=== PATIENT | female | born 1995 | race Caucasian/White ===

== ENCOUNTER 2017-01-26 05:01 | Emergency (ER) | payer OTHER ==
[2017-01-26 05:14] VITALS: TEMP 98.2; BMI 31.4
[2017-01-26] MEDS ORDERED: SODIUM CHLORIDE 1,000 ML IV STA (05:19)
--- NOTE | 2017-01-26 05:27 | PDOC ---
History of Present Illness - General Chief Complaint: Pain, Acute Stated Complaint: ABD PAIN, ARM/BACK PAIN Time Seen by Provider: 01/26/17 05:13 History Source: Patient Exam Limitations: No Limitations - History of Present Illness Initial Comments: 01/26/17 05:20 This pt is a 21 yo F with a history of Asthma presenting to the ER with a complaint of abdominal pain. She states her symptoms began one hour prior to arrival Pain described as sharp, located in the periumbilical and epigastric areas. Pain began while she was sleeping. Pain is intermittent, no exacerbating or alleviating factors Pt feels nauseous, has not vomited. No prior episodes like this She did have some abdominal pain last week while in the [place] and then subsequently had diarrhea This time, no diarrhea No abdominal surgeries in the past She denies dysuria, flank pain LMP 1 month ago ROS: GENERAL/CONSTITUTIONAL: No: fever, chills, weakness, loss of appetite. HEAD, EYES, EARS, NOSE AND THROAT: No: change in vision, ear pain, discharge, sore throat, throat swelling. CARDIOVASCULAR: No: chest pain, lightheadedness, palpitations, syncope RESPIRATORY: No: cough, shortness of breath, wheezing, hemoptysis, stridor. GASTROINTESTINAL: (+) abdominal pain, nausea No: vomiting, diarrhea GENITOURINARY: No: dysuria, hematuria, frequency, urgency, flank pain. MUSCULOSKELETAL: No: back pain, neck pain, joint pain, muscle swelling or pain SKIN: No: lesions, pallor, rash or easy bruising. NEUROLOGIC: No: headache, vertigo, paresthesias, weakness ENDOCRINE: No: unexplained weight gain or loss HEMATOLOGIC/LYMPHATIC: No: anemia, easy bleeding, swelling nodes. PHYSICAL EXAM GENERAL: The patient is in no acute distress, intermittently pt pulls he legs up in the position, due to pain and cries HEAD: Normal with no signs of trauma. EYES: PERRLA, EOMI, sclera anicteric, conjunctiva clear. ENT: Ears normal, nares patent, oropharynx clear without exudates. Moist mucous membranes. NECK: Normal range of motion, supple without lymphadenopathy, JVD, or masses. LUNGS: Breath sounds equal, clear to auscultation bilaterally. No wheezes, and no crackles. HEART:Regular rate and rhythm, normal S1 and S2 without murmur, rub or gallop. ABDOMEN: (+) tender to palpation epigastrium, RUQ ttp, (+ ) Kamara's sign , Soft , normoactive bowel sounds. No involuntary guarding, no rebound. EXTREMITIES: Normal range of motion, no edema. No clubbing or cyanosis. No erythema, or tenderness. NEUROLOGICAL: Cranial nerves II through XII grossly intact. Normal speech. No focal neurological deficits. MUSCULOSKELETAL: Back non-tender to palpation, no CVA tenderness SKIN: Warm, Dry, normal turgor, no rashes or lesions noted. Past History - Past Medical History Allergies/Adverse Reactions: Allergies Allergy/AdvReac Type Severity Reaction Status Date / Time No Known Allergies Allergy Verified 01/26/17 05:13 Home Medications: Ambulatory Orders NK [No Known Home Medication] 10/10/14 - Psycho/Social/Smoking Cessation Hx Anxiety: No Suicidal Ideation: No Smoking History: Never smoked Hx Alcohol Use: No Substance Use Type: None *Physical Exam - Vital Signs Last Vital Signs Temp Pulse Resp BP Pulse Ox 98.2 F 85 20 140/87 100 01/26/17 05:13 01/26/17 05:13 01/26/17 05:13 01/26/17 05:13 01/26/17 05:13 ED Treatment Course - LABORATORY CBC & Chemistry Diagram: 01/26/17 05:35 01/26/17 05:35 Medical Decision Making - Medical Decision Making 01/26/17 05:24 DD: cholecystitis, gastric ulcer, early appendicitis, colitis Will do labs Will do abd CT Will give IVF Will give Zofran Will give pain medications Will re assess 01/26/17 06:26 Pelvic examination: Scant discharge No CMT Pt states her mother had something similar last year and was told that she had an amoeba Pt believes this is the same 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 now Bedside US appears to demonstrate an enlarged gallbladder I have had a long conversation with this patient about additional imaging She would like to avoid radiation if possible Will start with an official US 01/26/17 06:31 Laboratory Tests 01/26/17 01/26/17 05:35 05:35 WBC 9.2 Hgb 12.1 Hct 37.2 Plt Count 259 Neutrophils % 56.4 Lymphocytes % 34.5 BUN 8 Creatinine 0.7 Pt signed out to Dr Young pending US *DC/Admit/Observation/Transfer Diagnosis at time of Disposition: Diarrhea - Discharge Dispostion Disposition: HOME Condition at time of disposition: Fair - Referrals Referrals: Jefry Pena MD [Primary Care Provider] - - Patient Instructions Printed Discharge Instructions: DI for Abdominal Pain-Adult Additional Instructions: make sure that you follow up with your doctor-- you may need additional testing done if diarrhea continues. Return for pain with fever, worsening pain, severe nausea and vomiting.
[2017-01-26] MEDS ORDERED: ONDANSETRON 4 MG/2 ML VIAL IVPUSH ONE (05:33)
[2017-01-26] MEDS ORDERED: morphine CARPU-JECT 4 MG/1 ML DISP.SYRIN IVPUSH ONE (05:33)
[2017-01-26] MEDS ORDERED: ONDANSETRON 4 MG/2 ML VIAL ONE (05:35)
[2017-01-26] MEDS ORDERED: morphine CARPU-JECT 4 MG/1 ML DISP.SYRIN ONE (05:36)
[2017-01-26 06:01] LABS: BASOPHIL 0.5 % (0-2.0); EOSINOPHIL 0.8 % (0-4.5); MCH 27.9 pg (25.7-33.7); MCHC 32.5 g/dl (32.0-36.0); MEAN CELL VOLUME 85.9 fl (80-96); MEAN PLT VOLUME 9.4 fl (7.5-11.1); NEUTROPHILS 56.4 % (42.8-82.8); PLATELET COUNT 259 K/MM3 (134-434); RDW 12.6 % (11.6-15.6); WHITE BLOOD COUNT 9.2 K/mm3 (4.0-10.0)
[2017-01-26 06:26] LABS: ALBUMIN 3.3 g/dl (3.4-5.0); ALK PHOS 79 U/L (45-117); AMYLASE 39 U/L (25-115); ANION GAP 7 (8-16); BILIRUBIN,TOTAL 0.4 mg/dL (0.2-1.0); CO2 27 mmol/L (21-32); CREATININE 0.7 mg/dL (0.55-1.02); GLUCOSE,RANDOM 94 mg/dL (74-106); SGOT/AST 40 U/L (15-37); SGPT/ALT 27 U/L (12-78); TOT PROT 7.4 g/dl (6.4-8.2)
[2017-01-26 10:58] LABS: URINE APPEARANCE CLEAR; URINE BILIRUBIN NEGATIVE (NEGATIVE); URINE BLOOD NEGATIVE (NEGATIVE); URINE COLOR LTYELLOW; URINE GLUCOSE (UA) NEGATIVE (NEGATIVE); URINE KETONE NEGATIVE (NEGATIVE); URINE NITRITE NEGATIVE (NEGATIVE); URINE PROTEIN NEGATIVE (NEGATIVE); URINE UROBILINOGEN NEGATIVE E.U./dl (0.2-1.0)
[2017-01-26 11:14] LABS: URINE LEUK ESTERASE 1+ (NEGATIVE)
[2017-01-26 11:23] LABS: URINE MUCUS RARE; URINE RBC 1 /hpf (0-3); URINE WBC 5 /hpf (3-5)
--- NOTE | 2017-01-26 12:01 | PDOC ---
History of Present Illness - General Chief Complaint: Pain, Acute Stated Complaint: ABD PAIN, ARM/BACK PAIN Time Seen by Provider: 01/26/17 05:13 Past History - Past Medical History Allergies/Adverse Reactions: Allergies Allergy/AdvReac Type Severity Reaction Status Date / Time No Known Allergies Allergy Verified 01/26/17 05:13 Home Medications: Ambulatory Orders NK [No Known Home Medication] 10/10/14 - Psycho/Social/Smoking Cessation Hx Anxiety: No Suicidal Ideation: No Smoking History: Never smoked Hx Alcohol Use: No Substance Use Type: None *Physical Exam - Vital Signs Last Vital Signs Temp Pulse Resp BP Pulse Ox 98.2 F 85 20 140/87 100 01/26/17 05:13 01/26/17 05:13 01/26/17 05:13 01/26/17 05:13 01/26/17 05:13 ED Treatment Course - LABORATORY CBC & Chemistry Diagram: 01/26/17 05:35 01/26/17 05:35 - ADDITIONAL ORDERS Additional order review: Laboratory Results 01/26/17 01/26/17 05:35 05:35 Sodium 139 Potassium 4.7 Chloride 105 Carbon Dioxide 27 Anion Gap 7 L BUN 8 Creatinine 0.7 Creat Clearance w eGFR > 60 Random Glucose 94 Calcium 9.0 Total Bilirubin 0.4 AST 40 H ALT 27 Alkaline Phosphatase 79 Total Protein 7.4 Albumin 3.3 L Total Amylase 39 Lipase 74 Serum , Qual Negative Urine Color Ltyellow Urine Appearance Clear Urine pH 6.0 Urine Protein Negative Urine Glucose (UA) Negative Urine Ketones Negative Urine Blood Negative Urine Nitrite Negative Urine Bilirubin Negative Urine Urobilinogen Negative Ur Leukocyte Esterase 1+ H Urine RBC 1 Urine WBC 5 Ur Epithelial Cells Rare Urine Mucus Rare 01/26/17 05:35 RBC 4.33 MCV 85.9 MCHC 32.5 RDW 12.6 MPV 9.4 Neutrophils % 56.4 Lymphocytes % 34.5 Monocytes % 7.8 Eosinophils % 0.8 Basophils % 0.5 - Medications Given in the ED: ED Medications Discontinued Medications Generic Name Dose Route Start Last Admin Trade Name Freq PRN Reason Stop Dose Admin Sodium Chloride 1,000 mls @ 1,000 mls/hr 01/26/17 05:19 01/26/17 05:31 Normal Saline - IV 01/26/17 06:18 1,000 mls/hr ASDIR STA Administration Morphine Sulfate 4 mg 01/26/17 05:33 01/26/17 05:45 Morphine Injection - IVPUSH 01/26/17 05:34 4 mg ONCE ONE Administration Ondansetron HCl 4 mg 01/26/17 05:33 01/26/17 05:34 Zofran Injection IVPUSH 01/26/17 05:34 4 mg ONCE ONE Administration Medical Decision Making - Medical Decision Making 01/26/17 12:[address] negative except for possible hemangioma. Abdomen is non tender non my exam. Nausea and diarrhea are gone. Patient will be discharged with instructions to follow up with her PMD this week for stool O and P. *DC/Admit/Observation/Transfer Diagnosis at time of Disposition: Diarrhea - Discharge Dispostion Disposition: HOME Condition at time of disposition: Good Admit: No - Referrals Referrals: Jefry Pena MD [Primary Care Provider] - - Patient Instructions Printed Discharge Instructions: DI for Abdominal Pain-Adult Additional Instructions: make sure that you follow up with your doctor-- you may need additional testing done if diarrhea continues. Return for pain with fever, worsening pain, severe nausea and vomiting.
[2017-01-26 12:12] VITALS: BP 127/90; PULSE 82
== END 2017-01-26 12:12 | disposition home or self-care (01) ==
LOC: JER 05:01
PROC: 3E0337Z Introduction of Electrolytic and Water Balance Substance into Peripheral Vein, Percutaneous Approach (ICD-10-PCS; principal; 2017-01-26)
PROC: 3E033NZ Introduction of Analgesics, Hypnotics, Sedatives into Peripheral Vein, Percutaneous Approach (ICD-10-PCS; 2017-01-26)
PROC: 3E033GC Introduction of Other Therapeutic Substance into Peripheral Vein, Percutaneous Approach (ICD-10-PCS; 2017-01-26)
DX: R10.13 Epigastric pain (principal)
CPT/HCPCS: 36415; 76705-TC; 80053; 81003; 81015; 82150; 83690; 84703; 85025; 87086; 96361; 96374; 96375; 99283-25

== ENCOUNTER 2018-05-29 09:28 | Emergency (ER) | payer OTHER ==
[2018-05-29 09:35] VITALS: BP 125/79; PULSE 80; TEMP 99.1; BMI 31.6
[2018-05-29] MEDS ORDERED: predniSONE 20 MG TABLET (UD) PO ONE (10:33)
[2018-05-29] MEDS ORDERED: predniSONE 20 MG TABLET (UD) ONE (10:37)
--- NOTE | 2018-05-29 10:43 | PDOC ---
History of Present Illness - General Chief Complaint: Allergic Reaction Stated Complaint: Allergic Reaction Time Seen by Provider: 05/29/18 10:29 History Source: Patient Exam Limitations: No Limitations - History of Present Illness Initial Comments: 05/29/18 10:45 23 y/o female presents to the ED with a facial itchy red rash since worsening in severity this morning. Patient states has had 3 episodes over the past 2 years with similar presentation and responded well to Benadryl and steroids. 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 Patient also denies recent travel, recent fever, difficulty swallowing, or difficulty breathing. Severity: mild Associated Symptoms: reports: rash Past History - Travel Traveled outside of the country in the last 30 days: No - Past Medical History Allergies/Adverse Reactions: Allergies Allergy/AdvReac Type Severity Reaction Status Date / Time No Known Allergies Allergy Verified 05/29/18 09:31 Home Medications: Ambulatory Orders Diphenhydramine [Benadryl -] 50 mg PO TID PRN #21 capsule 05/29/18 predniSONE [Deltasone -] 40 mg PO DAILY #6 tablet 05/29/18 COPD: No Other medical history: contact dermatitis - Suicide/Smoking/Psychosocial Hx Smoking History: Never smoked Have you smoked in the past 12 months: No Information on smoking cessation initiated: No Hx Alcohol Use: No Drug/Substance Use Hx: No Substance Use Type: None Patient Lives Alone: No Lives with/in: parents Review of Systems - Review of Systems Able to Perform ROS?: No Constitutional: No: Symptoms Reported HEENTM: No: Symptoms Reported Respiratory: No: Symptoms reported Cardiac (ROS): No: Symptoms Reported ABD/GI: No: Symptoms Reported : No: Symptoms Reported Musculoskeletal: No: Symptoms Reported Integumentary: Yes: Rash (to face and neck) Neurological: No: Symptoms reported Hematologic/Lymphatic: No: Symptoms Reported *Physical Exam - Vital Signs Last Vital Signs Temp Pulse Resp BP Pulse Ox 99.1 F 80 18 125/79 100 05/29/18 09:32 05/29/18 09:32 05/29/18 09:32 05/29/18 09:32 05/29/18 09:32 - Physical Exam General Appearance: Yes: Nourished, Appropriately Dressed. No: Apparent Distress HEENT: positive: Pharynx Normal. negative: Pale Conjunctivae Neck: positive: Supple Respiratory/Chest: positive: Lungs Clear, Normal Breath Sounds. negative: Respiratory Distress, Accessory Muscle Use, Stridor Cardiovascular: positive: Regular Rhythm, Regular Rate. negative: Murmur Integumentary: positive: Rash (ine vesicular papular rash to forehead, cheeks, chin, and base of posterior neck) Neurologic: positive: Motor Strength 5/5 (ambulatory) ED Treatment Course - Medications Given in the ED: ED Medications Discontinued Medications Generic Name Dose Route Start Last Admin Trade Name Freq PRN Reason Stop Dose Admin Prednisone 60 mg 05/29/18 10:33 05/29/18 10:40 Deltasone - PO 05/29/18 10:34 60 mg ONCE ONE Administration Medical Decision Making - Medical Decision Making 05/29/18 10:52 Patient with itchy papular vesicular rash to face and neck. Patient ordered for prednisone and will be discharged home with prednisone and Benadryl. Patient also given dermatology referral *DC/Admit/Observation/Transfer Diagnosis at time of Disposition: Allergic dermatitis - Discharge Dispostion Disposition: HOME Condition at time of disposition: Good - Prescriptions Prescriptions: Diphenhydramine [Benadryl -] 50 mg PO TID PRN #21 capsule PRN Reason: For Itching predniSONE [Deltasone -] 40 mg PO DAILY #6 tablet - Referrals Referrals: Blayne Richard MD [Non Staff, Medical] - - Patient Instructions Printed Discharge Instructions: DI for Contact Dermatitis Additional Instructions: Please follow up with referred dermatologists by calling on Thursday for an appointment. Please take prednisone starting tomorrow since you were given your first dose here today. May take Benadryl as needed every 8 hours for itching and inflammation. Please return to ED if symptoms worsen. - Post Discharge Activity
== END 2018-05-29 10:57 | disposition home or self-care (01) ==
LOC: JERFT 09:28
DX: L23.9 Allergic contact dermatitis, unspecified cause (principal)
CPT/HCPCS: 99281-25